=== PATIENT | female | born 1965 | race Caucasian/White ===

== ENCOUNTER 2016-08-31 07:29 | Emergency (ER) | payer BC ==
[2016-08-31 07:53] VITALS: BP 135/84
--- NOTE | 2016-08-31 08:58 | ED ---
Skin Complaint - HPI Summary HPI Summary: Pt here w/ skin wound over Rt buttock x few days. Noticed after shaving with an old razor that she and her share. Had some redness initially but thought it would go away so left it alone. As it became larger, more tender and red, she had her look at it who ruptured the area - has had some drainage since. Feels ill in general - subjective fever alternating w/ chills, reduced appetite and achey all over. 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 Denies chest pain, shortness of breath, headache, vomiting, sores elsewhere. - History of Current Complaint Chief Complaint: UCSkin Time Seen by Provider: 08/31/16 08:22 Stated Complaint: FEVER LUMP ON BUTTOCK Hx Obtained From: Patient Hx Last Menstrual Period: AUGUST 082016 - Allergy/Home Medications Allergies/Adverse Reactions: Allergies Allergy/AdvReac Type Severity Reaction Status Date / Time No Known Allergies Allergy Verified 08/31/16 07:47 Home Medications: Home Medications Acetaminophen TAB* [Tylenol TAB*] 1 tab PO TID PRN 08/31/16 [History Confirmed 08/31/16] PMH/Surg Hx/FS Hx/Imm Hx Previously Healthy: Yes Endocrine/Hematology History: Reports: Autoimmune Disease - Granuloma annularis Denies: Hx Diabetes, Hx Thyroid Disease Cardiovascular History: Denies: Hx Hypertension Respiratory History: Denies: Hx Asthma, Hx Chronic Obstructive Pulmonary Disease (COPD) GI History: Denies: Hx Ulcer - Surgical History Surgery Procedure, Year, and Place: knee surgery Infectious Disease History: No Infectious Disease History: Denies: Hx Hepatitis, Hx Human Immunodeficiency Virus (HIV), History Other Infectious Disease, Traveled Outside the [place] in Last 30 Days - Social History Alcohol Use: Rare Substance Use Type: Reports: None Smoking Status (MU): Heavy Every Day Tobacco Smoker Type: Cigarettes Amount Used/How Often: 1 ppd Physical Exam Vital Signs On Initial Exam: Initial Vitals Temp Pulse Resp BP Pulse Ox 98.2 F 100 16 135/84 98 08/31/16 07:49 08/31/16 07:49 08/31/16 07:49 08/31/16 07:49 08/31/16 07:49 Diagnostics - Vital Signs Vital Signs Temp Pulse Resp BP Pulse Ox 08/31/16 07:49 98.2 F 100 16 135/84 98 - Laboratory Lab Statement: Any lab studies that have been ordered have been reviewed, and results considered in the medical decision making process. Discharge - Discharge Plan Condition: Stable Disposition: HOME Prescriptions: Sulfamethox/Trimethoprim DS* [Bactrim DS 800/160 TAB*] 1 tab PO BID #20 tab Patient Education Materials: Abscess (ED) Referrals: [facility] REFERR[facility] [Outside] No Primary Care Phys,NOPCP [Medical Doctor] - Additional Instructions: You may continue ibuprofen alternating with acetaminophen for pain, fever You may also try epsom salt soaks and warm compresses to encourage drainage and reduce swelling Stay hydrated and rest Follow-up with PCP in 2 days for recheck - if worse, return to UC or go to ED sooner
--- NOTE | 2016-08-31 09:06 | UC ---
Skin Complaint HPI - HPI Summary HPI Summary: Pt here w/ skin wound over Rt buttock x few days. Noticed after shaving with an old razor that she and her share. Had some redness initially but thought it would go away so left it alone. As it became larger, more tender and red, she had her look at it who ruptured the area - has had some drainage since. Feels ill in general - subjective fever alternating w/ chills, reduced appetite and achey all over. 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 Denies chest pain, shortness of breath, headache, vomiting, sores elsewhere. 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 - History of Current Complaint Chief Complaint: UCSkin Time Seen by Provider: 08/31/16 08:22 Stated Complaint: FEVER LUMP ON BUTTOCK Hx Obtained From: Patient Hx Last Menstrual Period: AUGUST 082016 - Allergy/Home Medications Allergies/Adverse Reactions: Allergies Allergy/AdvReac Type Severity Reaction Status Date / Time No Known Allergies Allergy Verified 08/31/16 07:47 Home Medications: Home Medications Acetaminophen TAB* [Tylenol TAB*] 1 tab PO TID PRN 08/31/16 [History Confirmed 08/31/16] Review of Systems Constitutional: Other - see HPI Skin: Other - see HPI ENT: Negative Respiratory: Negative Cardiovascular: Negative Gastrointestinal: Negative Motor: Negative Neurovascular: Negative Musculoskeletal: Arthralgia - see HPI Neurological: Negative Psychological: Negative All Other Systems Reviewed And Are Negative: Yes PMH/Surg Hx/FS Hx/Imm Hx - Additional Past Medical History Additional PMH: Granuloma annulare No known h/o MRSA H/o "nasal sores" - herpes vs. MRSA? Previously Healthy: Yes Endocrine History Of: Denies: Diabetes, Thyroid Disease Cardiovascular History Of: Denies: Cardiac Disorders, Hypertension Respiratory History Of: Denies: COPD, Asthma GI/ History Of: Denies: Ulcer - Surgical History Surgical History: Yes Surgery Procedure, Year, and Place: knee surgery - Family History Known Family History: Positive: Other - leukemia, breast cancer - Social History Occupation: Unemployed Lives: With Family Alcohol Use: Rare Substance Use Type: None, Marijuana - occasionally Smoking Status (MU): Current Every Day Smoker Type: Cigarettes Amount Used/How Often: 1 ppd Physical Exam Triage Information Reviewed: Yes Appearance: Well-Appearing Vital Signs: Initial Vital Signs Temp 98.2 F 08/31/16 07:49 Pulse 100 08/31/16 07:49 Resp 16 08/31/16 07:49 BP 135/84 08/31/16 07:49 Pulse Ox 98 08/31/16 07:49 Vital Signs Reviewed: Yes Eye Exam: Normal ENT Exam: Normal Respiratory Exam: Normal Cardiovascular Exam: Normal Abdominal Exam: Normal Bowel Sounds: Positive: Present Musculoskeletal Exam: Normal Neurological Exam: Normal Psychological Exam: Normal Skin Exam: Other - Rt inner buttock w/ 4cm area of erythema w/ mild blistering - center is open and moist but no active drainage - mild TTP Course/Dx - Course Course Of Treatment: Buttock abscess, possible MRSA in appearance - will cover with antibiotics - Diagnoses Provider Diagnoses: Buttock Abscess Discharge - Discharge Plan Condition: Stable Disposition: HOME Prescriptions: Sulfamethox/Trimethoprim DS* [Bactrim DS 800/160 TAB*] 1 tab PO BID #20 tab Patient Education Materials: Abscess (ED) Referrals: [facility] [Outside] No Primary Care Phys,NOPCP [Medical Doctor] - Additional Instructions: You may continue ibuprofen alternating with acetaminophen for pain, fever You may also try epsom salt soaks and warm compresses to encourage drainage and reduce swelling Stay hydrated and rest Follow-up with PCP in 2 days for recheck - if worse, return to UC or go to ED sooner
== END 2016-08-31 08:40 | disposition home or self-care (01) ==
LOC: UCEAST 07:29
DX: L02.31 Cutaneous abscess of buttock (principal); F17.210 Nicotine dependence, cigarettes, uncomplicated
CPT/HCPCS: 87070; 87077; 87205; 87640; 87641; 99212; G0463

== ENCOUNTER 2017-01-07 12:55 | Emergency (ER) | payer SELFPAY ==
[2017-01-07 13:08] VITALS: BP 103/84
--- NOTE | 2017-01-07 13:31 | UC ---
Lower Extremity/Ankle HPI - HPI Summary HPI Summary: 51 y/o female s/p ACL repair with generalized knee pain. no swelling, diffuse knee pain throughout knee, denies instability/ locking - History of Current Complaint Chief Complaint: UCLowerExtremity Stated Complaint: KNEE XRAY-FOLLOW UP Time Seen by Provider: 01/07/17 13:01 Hx Obtained From: Patient Hx Last Menstrual Period: AUGUST 082016 Onset/Duration: Gradual Onset, Lasting Weeks, Still Present Severity Currently: Mild - Allergies/Home Medications Allergies/Adverse Reactions: Allergies Allergy/AdvReac Type Severity Reaction Status Date / Time No Known Allergies Allergy Verified 01/07/17 13:04 Home Medications: Home Medications NK [No Home Medications Reported] 01/07/17 [History Confirmed 01/07/17] PMH/Surg Hx/FS Hx/Imm Hx Previously Healthy: No - ACL repair several years prior - Surgical History Surgical History: Yes Surgery Procedure, Year, and Place: knee surgery - Family History Known Family History: Positive: Other - leukemia, breast cancer - Social History Alcohol Use: Rare Substance Use Type: None, Marijuana Smoking Status (MU): Current Every Day Smoker Type: Cigarettes Amount Used/How Often: 1 ppd Review of Systems Musculoskeletal: Arthralgia All Other Systems Reviewed And Are Negative: Yes Physical Exam Triage Information Reviewed: Yes Appearance: Well-Appearing, No Pain Distress, Well-Nourished Vital Signs: Initial Vital Signs Temp 98.2 F 01/07/17 12:59 Pulse 79 01/07/17 12:59 Resp 16 01/07/17 12:59 BP 103/84 01/07/17 12:59 Pulse Ox 100 01/07/17 12:59 Vital Signs Reviewed: Yes Musculoskeletal: Positive: Other: - RIGHT knee: neg ACL, PCL testing, neg eugene, neg anton/ michael stressing/ instability, ROM 0-145, non-tender to palpation, no effusion noted. no patellar instability PT 2+ neg homans Psychological Exam: Normal Skin Exam: Normal Lower Extremity Course/Dx - Course Course Of Treatment: x-ray neg for fx, follow up with ortho surgeon - Differential Dx/Diagnosis Differential Diagnosis/HQI/PQRI: Contusion, Fracture (Closed), Sprain, Strain Provider Diagnoses: knee pain, osteoarthritis R knee Discharge - Discharge Plan Condition: Good Disposition: HOME Patient Education Materials: Arthralgia (ED) Referrals: Nakul Garcia MD [Primary Care Provider] - Additional Instructions: - Follow up with primary physician as necessary - Follow up with orthopedic surgeon
--- NOTE | 2017-01-07 13:42 | RAD ---
INDICATION: Knee pain. History of ACL repair COMPARISON: None TECHNIQUE: AP, lateral, tunnel, and sunrise views were obtained. FINDINGS: There is ACL surgery. There is minor medial joint space narrowing with minor condylar spurring. There is minor patellofemoral spurring. There is no joint effusion. IMPRESSION: POSTOPERATIVE CHANGE WITH MINOR MEDIAL AND PATELLOFEMORAL OSTEOARTHRITIS
== END 2017-01-07 13:40 | disposition home or self-care (01) ==
LOC: UCCORT 12:55
DX: M17.11 Unilateral primary osteoarthritis, right knee (principal); M25.561 Pain in right knee; F17.210 Nicotine dependence, cigarettes, uncomplicated
CPT/HCPCS: 99211; G0463

== ENCOUNTER 2017-07-08 10:10 | Emergency (ER) | payer BC ==
[2017-07-08 11:34] VITALS: BP 152/81
--- NOTE | 2017-07-08 12:32 | UC ---
FLU HPI - HPI Summary HPI Summary: 51 y/o female presents to the urgent care c/o body aches, fever, chills, dry cough, chest congestion and CASTELLANOS since yesterday. She has not taking anything to alleviate symptoms. Pt denies SOB, chest pain, abdominal pain N/V/D - History of Current Complaint Chief Complaint: UCRespiratory Stated Complaint: CHILLS/ACHEY Time Seen by Provider: 07/08/17 12:25 Hx Obtained From: Patient Hx Last Menstrual Period: AUGUST 082016 Onset/Duration: Gradual Onset, Lasting Days - 1 day, Still Present, Worse Since - this morning Severity Currently: Mild Severity Initially: Moderate Pain Intensity: 5 Pain Scale Used: 0-10 Numeric Associated Signs & Symptoms: Positive: Fever, Myalgia, Cough - dry, Nasal Congestion, Headache - Risk Factors Influenza Risk Factors: Negative - Allergy/Home Medications Allergies/Adverse Reactions: Allergies Allergy/AdvReac Type Severity Reaction Status Date / Time No Known Allergies Allergy Verified 01/07/17 13:04 PMH/Surg Hx/FS Hx/Imm Hx Previously Healthy: Yes - Pt denies PMHX - Surgical History Surgical History: Yes Surgery Procedure, Year, and Place: knee surgery - Family History Known Family History: Positive: None - Pt denies FMHX, Other - leukemia, breast cancer - Social History Occupation: Employed Full-time Lives: With Family Alcohol Use: Rare Substance Use Type: None Smoking Status (MU): Current Every Day Smoker Type: Cigarettes Amount Used/How Often: 1 ppd Review of Systems Constitutional: Fever, Chills, Fatigue, Other - body aches Skin: Negative Eyes: Negative ENT: Nasal Discharge, Sinus Congestion, Sinus Pain/Tenderness Respiratory: Cough Cardiovascular: Negative Gastrointestinal: Negative Genitourinary: Negative Motor: Negative Neurovascular: Negative Musculoskeletal: Negative Neurological: Headache Psychological: Negative Is Patient Immunocompromised?: No All Other Systems Reviewed And Are Negative: Yes Physical Exam Triage Information Reviewed: Yes Vital Signs: Initial Vital Signs Temp 100.5 F 07/08/17 11:30 Pulse 92 07/08/17 11:30 Resp 18 07/08/17 11:30 BP 152/81 07/08/17 11:30 Pulse Ox 100 07/08/17 11:30 - Additional Comments VITAL SIGNS: Reviewed. GENERAL: Patient is a well developed and nourished female who is sitting comfortable in the examining table. Patient is not in any acute respiratory distress. HEAD AND FACE: No signs of trauma. No ecchymosis, hematomas or skull depressions. No sinus tenderness. edematous erythematous nasal mucosa with yellowish discharge, EYES: PERRLA, EOMI x 2, No injected conjunctiva, clear watery eyes, no nystagmus. No photophobia. EARS: Hearing grossly intact. Ear canals and tympanic membranes are within normal limits. MOUTH: Positive pharynx with erythema, no exudates,no palatal petechiae. no B/L tonsillar enlargement Uvula in midline. NECK: Supple, trachea is midline, Positive anterior cervical lymphadenopathy, no JVD, no carotid bruit, no c-spine tenderness, neck with full ROM. No meningeal signs, no Kernig's or brudzinskis signs. CHEST: Symmetric, no tenderness at palpation LUNGS: Clear to auscultation bilaterally. No wheezing or crackles. CVS: Regular rate and rhythm, S1 and S2 present, no murmurs or gallops appreciated. ABDOMEN: Soft, non-tender. No signs of distention. No rebound no guarding, and no masses palpated. Bowel sounds are normal. EXTREMITIES: FROM in all major joints, no edema, no cyanosis or clubbing. NEURO: Alert and oriented x 3. No acute neurological deficits. Speech is normal and follows commands. SKIN: Dry and warm Flu Course/Dx - Course Course Of Treatment: 51 y/o female presents to the urgent care c/o body aches, fever, chills, dry cough, chest congestion and CASTELLANOS since yesterday. She has not taking anything to alleviate symptoms. Pt denies SOB, chest pain, abdominal pain N/V/D. Hx obtained. Pt with febrile and w/ URI on examination. Temp: 100.5F. Pt given ibuprofen PO 800mg for fever. Influenza A&B ordered: result: negative.Pt Rx ibuprofen PO and Tessalon tabs PO to alleviates symptoms. Advised on hand washing. Pt advised to rest, increase fluid intake, eat well and avoid strenuous exercise. If symptoms do not improve or worsen advised to return to the urgent care or f/u with her PCP for further evaluation and treatment. Pt's BP is elevated today advised to decrease salt in diet, monitor BP and f/u with PCP for further management. Pt understood and agreed with plan of care. - Differential Dx/Diagnosis Differential Diagnosis/HQI/PQRI: Bronchitis, Influenza, Pneumonia, Upper Respiratory Infection Provider Diagnoses: 1- Upper respiratory infection. 2-Cough. 3- Elevated BP w/ o Hx of HTN Discharge - Discharge Plan Condition: Stable Disposition: HOME Prescriptions: Benzonatate CAP* [Tessalon 100 MG CAP*] 100 mg PO TID PRN #21 cap PRN Reason: Cough Ibuprofen TAB* [Motrin TAB* 800 MG] 800 mg PO Q6H PRN #20 tab PRN Reason: Fever Patient Education Materials: Upper Respiratory Infection (ED), Low-Sodium Diet (ED) Forms: *Work Release Referrals: [facility] [Outside] - 3 Days Additional Instructions: 1- Influenza A&B are negative 2-Please take ibuprofen PO q6-8hrs prn as instructed after meals to alleviate pain and swelling. Increase fluid intake, eat well, rest and avoid strenuous exercise 3- Take Tessalon tabs PO to alleviate cough 4-If symptoms do not improve or worsen please return to the urgent care or f/u with your PCP for further evaluation and treatment. 5-Your BP is elevated today. please decrease salt in your diet, monitor BP and if it continues to be elevated please f/u with your PCP for further management
[2017-07-08] MEDS ORDERED: Ibuprofen TAB* 400 MG PO ONE (12:43)
== END 2017-07-08 13:12 | disposition home or self-care (01) ==
LOC: UCCORT 10:10
DX: J06.9 Acute upper respiratory infection, unspecified (principal); R05 Cough; R03.0 Elevated blood-pressure reading, without diagnosis of hypertension; F17.210 Nicotine dependence, cigarettes, uncomplicated
CPT/HCPCS: 87502; 99212; G0463

== ENCOUNTER 2019-07-13 17:55 | Emergency (ER) | payer BC ==
[2019-07-13 18:41] VITALS: BP 124/75
--- NOTE | 2019-07-13 19:00 | UC ---
Eye Complaint HPI - HPI Summary HPI Summary: 53 yo female presents with LEFT eye complaint. She tells me that over the last 4 days she has had redness and swelling bump to her left upper eyelid. She figured it was a stye and has been applying a warm compress with no change in symptoms. Denies fever, chills, vision changes, drainage in eye. - History of Current Complaint Chief Complaint: UCEye Stated Complaint: LEFT EYE COMPLAINT Time Seen by Provider: 07/13/19 19:00 Hx Obtained From: Patient Hx Last Menstrual Period: AUGUST 082016 Onset/Duration: Gradual Onset Severity Initially: Moderate Severity Currently: Moderate Pain Intensity: 5 Pain Scale Used: 0-10 Numeric - Allergies/Home Medications Allergies/Adverse Reactions: Allergies Allergy/AdvReac Type Severity Reaction Status Date / Time No Known Allergies Allergy Verified 07/13/19 18:37 PMH/Surg Hx/FS Hx/Imm Hx - Additional Past Medical History Additional PMH: None - Surgical History Surgical History: Yes Surgery Procedure, Year, and Place: right knee surgery; - Family History Known Family History: Positive: None - Pt denies FMHX - Social History Lives: With Family Alcohol Use: None Substance Use Type: Marijuana Substance Use Comment - Amount & Last Used: daily Smoking Status (MU): Light Every Day Tobacco Smoker Type: Cigarettes Amount Used/How Often: 5 cigarettes daily Review of Systems All Other Systems Reviewed And Are Negative: No Constitutional: Positive: Negative Skin: Positive: Negative Eyes: Positive: Other - Left upper eyelid stye Respiratory: Positive: Negative Cardiovascular: Positive: Negative Neurovascular: Positive: Negative Neurological/Mental Status: Positive: Negative Psychological: Positive: Negative Physical Exam - Summary Physical Exam Summary: GENERAL: NAD. WDWN. No pain distress. SKIN: No rashes, sores, lesions, or open wounds. HEENT: Head: AT/NC Eyes: EOM intact. Conjunctiva clear without inflammation or discharge. LEFT UPPER EYELID with mild erythema and edema central 3mm nodule that is mildly ttp. No drainage. Ears: Hearing grossly normal. TMs intact, no bulging, erythema, or edema. Nose: Nasal mucosa pink and moist. NTTP maxillary and frontal sinus. Throat: Posterior oropharynx without exudates, erythema, or tonsillar enlargement. Uvula midline. NEURO: Alert. PSYCH: Age appropriate behavior. Triage Information Reviewed: Yes Vital Signs: Initial Vital Signs Temp 97.8 F 07/13/19 18:37 Pulse 80 07/13/19 18:37 Resp 15 07/13/19 18:37 BP 124/75 07/13/19 18:37 Pulse Ox 98 07/13/19 18:37 Vital Signs Reviewed: Yes Eye Complaint Course/Dx - Course Course Of Treatment: Stye left eye. - Differential Dx/Diagnosis Provider Diagnosis: Stye Discharge ED - Sign-Out/Discharge Documenting (check all that apply): Patient Departure All imaging exams completed and their final reports reviewed: No Studies - Discharge Plan Condition: Stable Disposition: HOME Prescriptions: Erythromycin OPTH OINT* [Erythromycin 0.5% OPTH OINT*] 1 applic LEFT EYE BID #1 tube Patient Education Materials: Stye (ED) Referrals: No Primary Care Phys,NOPCP [Primary Care Provider] - Additional Instructions: If you develop a fever, shortness of breath, chest pain, new or worsening symptoms - please call your PCP or go to the ED immediately. Use a warm compress two or three times a day - Billing Disposition and Condition Condition: STABLE Disposition: Home
== END 2019-07-13 19:15 | disposition home or self-care (01) ==
LOC: UCCORT 17:55
DX: H00.014 Hordeolum externum left upper eyelid (principal); F17.210 Nicotine dependence, cigarettes, uncomplicated
CPT/HCPCS: 99212; G0463